=== PATIENT | female | born 1940 | race Caucasian/White ===

== ENCOUNTER → 2016-12-15 | Outpatient (CLI) | payer OTHER ==
[~2016-12-15] MED LIST: ASCO10003 PO; ASPI-232 PO; CHOL100010 PO; FERRTAB18 PO; LEVO88TA PO; LISI2.5T5 PO; OMEG-26 PO; POLYSOL4 OPB
[2016-12-15 13:21] VITALS: BP 143/73; PULSE 83; TEMP 37.2; O2SAT 99
--- NOTE | 2016-12-15 14:22 | Radiation Oncology Follow-Up ---
Radiation Oncology Follow-Up Date of Visit Dec 15, 2016. 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 She denies any urinary changes. She occasionally has constipation. For this she increase his fluids and intake of fruits. She was in the emergency room this past year for dehydration. Because of this episode she has been diligent about hydration. She has mild discharge which is unchanged from previous. There is no vaginal bleeding. She has a fissure of the posterior introitus. At her last visit Dr. Frye recommended that she use [id number] cortisone. She is also followed by Dr. Lo. Allergies Coded Allergies: Penicillins (Unverified Allergy, hives, 04/18/12) Home Medications Scheduled Ascorbic Acid (Vitamin C), 1 TAB PO DAILY Aspirin (Aspir-81), 1 TAB PO mon,Mon,Mon Levothyroxine Sodium (Synthroid), 88 MCG PO DAILY Lisinopril (Lisinopril), 5 MG PO DAILY [place] 3 Fatty [id number]-Tqv ([facility]), 1 CAP PO DAILY Polyethylene Glycol-Propylene (Systane), 1 DROP OPB qidprn Review of Systems Gastrointestinal: Symptoms: WNL Oral: Symptoms: No Problems Respiratory: Symptoms: WNL, Dry Cough Other Respiratory: cough from lisinopril Urinary: Symptoms: WNL Skin: Symptoms: No Problems Physical Exam Vital Signs Date Time Temp Pulse Resp B/P (MAP) Pulse Ox O2 Delivery O2 Flow Rate FiO2 12/15/16 13:21 37.2 83 18 143/73 99 Fatigue: None General Appearance: no apparent distress Eyes: normal inspection, EOMI ENT: normal ENT inspection, hearing grossly normal Neck: no adenopathy, thyroid normal Respiratory/Chest: lungs clear, no respiratory distress, no accessory muscle use Cardiovascular: regular rate, rhythm, no gallop, no murmur Abdomen: non tender, soft, no organomegaly Genitourinary - Female: She is noted to have the fissure at the posterior introitus. Otherwise normal external genitalia. Vaginal examination reveals mild telangiectasia. She also has a rectocele. There are no visible or palpable masses. Negative bimanual examination. There is no foreshortening of the vagina. There is no stenosis. Anal / Rectum: Normal sphincter tone. No rectal masses no rectal bleeding. Noted rectocele. Extremities: no pedal edema Neurologic/Psychiatric: no motor/sensory deficits, alert, normal mood/affect Skin: warm/dry Pain Management Side: Right Patient Preferred Pain Scale: 0 - 10 Assessment & Plan Plan: Continue regular follow-up with [facility] [place] [id number] and the gynecologic oncologist. She had previously been instructed to use over-the- counter cortisone to the fissure. She had forgotten these instructions and will remember to use the [id number] cortisone. Recheck laboratory studies in CT scanning per Dr. Lo. She has discontinued use of the vaginal dilator and is not having any difficulties with her pelvic examinations. We asked her to return to our office in 1 year. She may call if she has any questions or concerns in the interim. Total Time In Follow-Up I spent 20 minutes speaking to the patient performing examination. I spent 15 minutes reviewing information in completing this note. Copy To Karlos Lo M.D.; Rogelio Hodge M.D.; Gilles Frye M.D.
== END | disposition home or self-care (01) ==
LOC: C.ONC 13:07
PROVIDERS: ATTEND Physician Assistant Medical
DX: Z08 Encounter for follow-up examination after completed treatment for malignant neoplasm (principal); Z92.3 Personal history of irradiation; Z85.42 Personal history of malignant neoplasm of other parts of uterus